=== PATIENT | male | born 1940 | race Caucasian/White ===

== ENCOUNTER 2021-07-08 02:46 | Emergency (ER) | payer OTHER ==
[~2021-07-08] VITALS: Ht 160 cm; Wt 68.0 kg
[2021-07-08] MEDS ORDERED: SODIUM BICARBONATE 8.4% INJ 50ML SYRINGE IV ONE (02:47)
[2021-07-08] MEDS ORDERED: EPINEPHrine HCL 1 MG/10 ML SYRG IV ONE (02:47)
[2021-07-08] MEDS ORDERED: ADENOSINE 6 MG/2 ML INJ IV ONE (02:47)
[2021-07-08 02:51] VITALS: BP 0/0
== END 2021-07-08 02:47 ==
LOC: ER 02:46
DX: I46.9 Cardiac arrest, cause unspecified (principal); E78.00 Pure hypercholesterolemia, unspecified; I10 Essential (primary) hypertension; J44.9 Chronic obstructive pulmonary disease, unspecified; Z88.6 Allergy status to analgesic agent; Z95.0 Presence of cardiac pacemaker; Z91.011 Allergy to milk products; Z88.9 Allergy status to unspecified drugs, medicaments and biological substances
CPT/HCPCS: J0153